=== PATIENT | male | born 1940 | race Caucasian/White ===

== ENCOUNTER → 2016-10-15 | Day surgery (SDC) | payer OTHER ==
[2016-09-17 10:18] VITALS: BMI 43.0
--- NOTE | 2016-09-17 11:04 | PAT Medication Instructions ---
Service Date Sep 17, 2016. Current Home Medication List Acetaminophen Tab (Tylenol), 650 MG PO DAILY PRN for Pain Aspirin (Ecotrin Low Strength), 81 MG PO QAM Atenolol (Tenormin), 50 MG PO QAM Atorvastatin (Lipitor), 40 MG PO QPM Cyanocobalamin (Vitamin B12), 1,000 MCG PO QPM Docusate Sodium (Colace), 1 CAP PO BID Home O2 Therapy (Oxygen), 3 LITERS INH HS Ibuprofen-Diphenhydramine Hcl (Advil Pm), 2 TAB PO HS Insulin Aspart (Novolog), 40 UNITS SC TIDM Insulin Glargine (Lantus), 70 UNITS SC BID Isosorbide Mononitrate Ext Rel (Imdur Ext Rel), 60 MG PO QAM Losartan Potassium (Cozaar), 100 MG PO QAM Metformin HCl (Metformin HCl), 1 TAB PO BID Nitroglycerin (Nitrostat), 1 TAB SL UD Oxycodone HCl (Oxycodone HCl), 5-10 MG PO Q4H PRN for Pain Polyethylene Glycol 3350 (Miralax), 17 GM PO HS Medication Instructions For Your Scheduled Surgery - Check with surgeon/solution strategist for instructions: Aspirin (Ecotrin Low Strength), 81 MG PO QAM - Check with surgeon for instructions: Ibuprofen-Diphenhydramine Hcl (Advil Pm), 2 TAB PO HS - Hold the following medications 48 hours prior to surgery: Metformin HCl (Metformin HCl), 1 TAB PO BID - Hold the following medications the morning of surgery: Losartan Potassium (Cozaar), 100 MG PO QAM Insulin Aspart (Novolog), 40 UNITS SC TIDM Docusate Sodium (Colace), 1 CAP PO BID - Take the following medications the morning of surgery with a sip of water: Nitroglycerin (Nitrostat), 1 TAB SL UD (if needed) Oxycodone HCl (Oxycodone HCl), 5-10 MG PO Q4H PRN for Pain (okay to take up to 4 hours prior to surgery if needed) Isosorbide Mononitrate Ext Rel (Imdur Ext Rel), 60 MG PO QAM Atenolol (Tenormin), 50 MG PO QAM Acetaminophen Tab (Tylenol), 650 MG PO DAILY PRN for Pain (if needed) - Take the following medications as scheduled the night before surgery: Nitroglycerin (Nitrostat), 1 TAB SL UD Oxycodone HCl (Oxycodone HCl), 5-10 MG PO Q4H PRN for Pain (if needed) Polyethylene Glycol 3350 (Miralax), 17 GM PO HS Insulin Glargine (Lantus), 70 UNITS SC BID Insulin Aspart (Novolog), 40 UNITS SC TIDM Home O2 Therapy (Oxygen), 3 LITERS INH HS Docusate Sodium (Colace), 1 CAP PO BID Cyanocobalamin (Vitamin B12), 1,000 MCG PO QPM Atorvastatin (Lipitor), 40 MG PO QPM Acetaminophen Tab (Tylenol), 650 MG PO DAILY PRN for Pain (if needed) - For Insulin Dependent Diabetic patients: Test blood sugar A.M. of surgery. - If blood sugar greater than 150, take half of your regular dose of: Insulin Glargine (Lantus), 35 units - If blood sugar less than 150, do not take any: Insulin Glargine (Lantus ) If you have any questions please call us at [phone] or [phone] or [phone]
[2016-09-17 11:41] LABS: BASO % 0.6 %; BASO ABS # 0.05 K/uL (0-0.2); COMPLETE YES; EOS % 1.9 %; HEMATOCRIT 40.9 % (42-52); IG% 0.7 %; LYMPH % 22.4 %; LYMPH ABS # 1.98 K/uL (1.2-3.4); MEAN CELL VOLUME 91.5 fL (80-100); MEAN CORPUSCULAR HEMOGLOBIN 30.6 pg (25-34); MEAN CORPUSCULAR HGB CONC 33.5 g/dl (32-36); MEAN PLATELET VOLUME 11.7 fL (7.4-10.4); MONO % 14.4 %; PLATELET COUNT 140 K/uL (130-400); RED BLOOD COUNT 4.47 M/uL (4.7-6.1); URINE APPEARANCE CLEAR (CLEAR); URINE BILIRUBIN NEG (NEG); URINE COLOR YELLOW; URINE NITRITE NEG (NEG); URINE SPECIFIC GRAVITY 1.019 (1.000-1.030); UROBILINOGEN NEG (NEG); WHITE BLOOD COUNT 8.82 K/uL (4.8-10.8)
[2016-09-17 11:46] LABS: MANUAL MICROSCOPIC REQUIRED? NO; REVIEW REQ? NO
--- NOTE | 2016-09-17 12:35 | DIAGNOSTIC IMAGING REPORT ---
CHEST PREADMISSION(PA/LAT) CLINICAL HISTORY: 76 years-old Male presenting with preadmission chest x-ray. TECHNIQUE: PA and lateral views of the chest were obtained. COMPARISON: 12/05/2014. FINDINGS: Atherosclerosis of the aortic arch. Cardiomediastinal silhouette otherwise normal. Lungs and pleural spaces clear. Posterior fusion hardware noted in the lower thoracic region with associated degenerative changes. Upper abdomen normal. IMPRESSION: 1. No acute cardiopulmonary disease. Electronically signed by: Morgan Delgado M.D. 09/17/2016 12:34 PM Dictated Date/Time: 09/17/2016 12:33 PM
[2016-09-17 12:40] LABS: BUN/CREATININE RATIO 17.5 (10-20); CREATININE 1.5 mg/dl (0.60-1.40); POTASSIUM 4.5 mmol/L (3.5-5.1)
[~2016-10-15] VITALS: Ht 185.4 cm; Wt 150.2 kg
[~2016-10-15] MED LIST: ACET325T96 PO; ACETAMINOPHEN 325 MG TAB PO PRN; ACETAMINOPHEN 650 MG SUPP PR PRN; ASPI-428 PO; ATEN50TA PO; ATOR-24 PO; ATROPINE SULFATE 0.1 MG/ML 5ML SYR IV PRN; BACITRACIN 50000 UNIT VIAL ONE; BUPIVACAINE/EPINEPHRINE 0.5% MPF 1:200,000 10 ML VIAL ONE; CEFAZOLIN 3000 MG/65 ML D5W IV SCH; CYAN100020 PO; DEXAMETHASONE SOD INJ 4 MG/ML VIAL ONE; DOCU-94 PO; EpHEDrine SULFATE 50MG/5ML SYR ONE; EpHEDrine SULFATE INJ 50 MG/ML AMP IV PRN; FENTANYL CITRATE INJ 50 MCG/1 ML 2 ML VIAL IV PRN; FENTANYL CITRATE INJ 50 MCG/1 ML 2 ML VIAL ONE; GLC500 PO; GLYCOPYRROLATE INJ 0.2 MG/ML VIAL ONE; HYDROmorphone INJ 1 MG/ML SYR IV PRN; HYDROmorphone INJ 2 MG/ML SYR/VIAL IV PRN; HYDROmorphone INJ 2 MG/ML SYR/VIAL ONE; IBUP200C9 PO; INSDGI SC; ISOS60TA25 PO; LABETALOL HCL IV 5 MG/ML 20ML IV ONE; LACTATED RINGER'S 1000ML 1,000 ML IV SCH; LARYING-O-JET KIT (LTA) ONE; LIDOCAINE HCL 2% 2 ML VIAL (20MG/ML) ONE; LOSA1TAB38 PO; MIDAZOLAM HCL 1 MG/ML 2ML VIAL ONE; NEOSTIGMINE METHYLSULFATE 1 MG/ML 10ML VIAL ONE; NTRGSL/4 SL; NVLGI SC; ONDANSETRON INJ 2 MG/ML 2 ML VIAL IV PRN; ONDANSETRON INJ 2 MG/ML 2 ML VIAL ONE; OXGN INH; OXYCODONE HCL IR 5 MG TAB (IMMEDIATE RELEASE) PO PRN; PHENYLEPHRINE 100MCG/ML 5ML SYR ONE; POLY335019 PO; PROMETHAZINE HCL INJ 12.5 MG in SODIUM CHLORIDE 0.9% 50ML 50 ML IV PRN; PROPOFOL IV EMULSION 10 MG/ML 20 ML VIAL IV ONE; ROCURONIUM BROMIDE 10 MG/ML 5 ML VIAL ONE; RXC5 PO; SODIUM CHLORIDE 0.9% PF 50 ML VIAL ONE
[2016-10-15 07:35] VITALS: BP 173/84; PULSE 69; TEMP 36.7; O2SAT 95; Ht 185.4 cm; Wt 150.2 kg
--- NOTE | 2016-10-15 08:26 | History & Physical Bridge Note ---
H&P Re-Evaluation Bridge Note: I have examined the patient, reviewed the History & Physical and in the interval since the performance of the History & Physical I have noted the following changes of clinical significance: No changes noted
--- NOTE | 2016-10-15 08:27 | History and Physical ---
History & Physical Date Oct 15, 2016. Chief Complaint SI joint pain History of Present Illness The patient is a 76 year old male with complaints of chronic SI joint pain Past Medical/Surgical History Medical Problems: (1) CAD (coronary artery disease) (2) Diabetes mellitus (3) Dyslipidemia (4) Epidural abscess (5) HTN (hypertension) (6) ROQUE on CPAP (7) PAD (peripheral artery disease) Surgical Problems: (1) H/O inguinal hernia repair (2) Previous back surgery (3) S/P appendectomy (4) S/P tonsillectomy Additional History Hepatic Disease: No Endocrine Disorder: No Kidney Disease: No Hypertension: Yes Heart Disease: No Bleeding Tendencies: No Infectious Diseases: No Allergies Coded Allergies: Lisinopril (Verified Adverse Reaction, Unknown, COUGH, THROAT IRRITATION, 10/15/16) Home Medications Scheduled Aspirin (Ecotrin Low Strength), 81 MG PO QAM Atenolol (Tenormin), 50 MG PO QAM Atorvastatin (Lipitor), 40 MG PO QPM Cyanocobalamin (Vitamin B12), 1,000 MCG PO QPM Docusate Sodium (Colace), 1 CAP PO BID Home O2 Therapy (Oxygen), 3 LITERS INH HS Ibuprofen-Diphenhydramine Hcl (Advil Pm), 2 TAB PO HS Insulin Aspart (Novolog), 40 UNITS SC TIDM Insulin Glargine (Lantus), 70 UNITS SC BID Isosorbide Mononitrate Ext Rel (Imdur Ext Rel), 60 MG PO QAM Losartan Potassium (Cozaar), 100 MG PO QAM Metformin HCl (Metformin HCl), 1 TAB PO BID Nitroglycerin (Nitrostat), 1 TAB SL UD Polyethylene Glycol 3350 (Miralax), 17 GM PO HS Scheduled PRN Acetaminophen Tab (Tylenol), 650 MG PO DAILY PRN for Pain Oxycodone HCl (Oxycodone HCl), 5-10 MG PO Q4H PRN for Pain Physical Examination Skin: warm/dry, no rash Eyes: normal inspection, EOMI, sclerae normal ENT: normal ENT inspection, pharynx normal Head: normocephalic, atraumatic Neck: supple, no adenopathy, trachea midline Respiratory/Chest: lungs clear, normal breath sounds, no respiratory distress Cardiovascular: regular rate, rhythm, no edema, no murmur Abdomen / GI: normal bowel sounds, non tender Back: normal inspection Extremities: normal inspection, normal range of motion Neurologic/Psych: no motor/sensory deficits, alert, normal reflexes, oriented x 3 Diagnosis Right SI joint pain Plan of Treatment Right SI joint fusion
--- NOTE | 2016-10-15 10:03 | Discharge Instructions ---
Discharge Instructions Date of Service Oct 15, 2016. Admission Reason for Admission: Si Joint Dysfunction Discharge Discharge Diagnosis / Problem: SI joint pain Discharge Goals Goal(s): Improve function Activity Recommendations Activity Limitations: per Instructions/Follow-up section . Instructions / Follow-Up Instructions / Follow-Up Toe-touch weight-bearing right lower extremity with the use of the walker. May shower in 2 days. Follow-up in the office in 2 weeks as scheduled. Maintain incision clean dry and covered for 5 days. Current Hospital Diet Patient's current hospital diet: Discharge Diet Recommended Diet: Regular Diet Procedures Procedures Performed: Right Sacroiliac Joint Fusion Pending Studies Studies pending at discharge: no Medical Emergencies . Who to Call and When: Medical Emergencies: If at any time you feel your situation is an emergency, please call 911 immediately. . Non-Emergent Contact Non-Emergency issues call your: Primary Care Provider . "Provider Documentation" section prepared by Darren Mart. . VTE Core Measure Inpt VTE Proph given/why not?: [place], [facility]
--- NOTE | 2016-10-15 10:35 | DIAGNOSTIC IMAGING REPORT ---
SACRUM CLINICAL HISTORY: RT SACROILIAC JOINT FUSION fusion TECHNIQUE: Image intensifier COMPARISON STUDY: None FINDINGS: Findings consistent with a sacroiliac fusion. 3. Transverse screws are identified traversing the joint. Additional findings of a lumbar laminectomy and fusion. IMPRESSION: Sacroiliac fusion The above report was generated using voice recognition software. It may contain grammatical, syntax or spelling errors. Electronically signed by: Juan A Hartley M.D. 10/15/2016 10:34 AM Dictated Date/Time: 10/15/2016 10:33 AM
--- NOTE | 2016-10-15 11:02 | [facility] Operative Report ---
Operative Report Operative Date Oct 15, 2016. Pre-Operative Diagnosis Right Sacroiliac Joint Pain Post-Operative Diagnosis Right Sacroiliac Joint Pain Procedure(s) Performed Right Sacroiliac Joint Fusion Surgeon Dr. Mart Landscape Account Manager Surgeon(s) Rohan Dockery PA-C Estimated Blood Loss 20 cc Findings None Specimens none per surgeon Description of Procedure Patient is now probably case discussed questions are dressed. After informed consent patient was taken back to the operative suite and after intubation placed in the prone position the Paulie table with chest pads and hip bolsters. The right upper buttock was prepped and draped nostril fashion. The assistance of fluoroscopy in AP lateral planes and identified the right SI joint. Approximately 3 cm incision was placed on the right upper buttock. A guidewire was then placed in the proximal aspect of the right SI joint with fluoroscopic visualization. We then used dilators to expand up to place a drill across the SI joint. We then measured a 45 mm screw. We used combination of [place] bone grafting with bone graft from the drill. Within a 45 mm MON-coated slotted screw. It was placed across the SI joint without difficulty. Excellent fixation. Then using outrigger guide we placed a distal screw with the same technique this screw 40 mm in length. Again MON-coated filled with [place] bone graft in bone. Then placed the final screw 35 mm in length distal to the previously placed screw. Again excellent fixation across the joint. Incision was then copiously irrigated closed with subcutaneous Vicryl and Monocryl for final skin closure. Sterile dressing placed. Patient awakened taken to PACU stable condition. Please note Jarrod Dockery was present throughout the entire procedure involved in patient positioning complex portions of the procedure and final skin closure. I attest to the content of the Intraoperative Record and any orders documented therein. Any exceptions are noted below.
--- NOTE | 2016-10-15 11:10 | Anesthesiology Progress Note ---
Anesthesia Post Op Note Date & Time Oct 15, 2016 at 11:10 Vital Signs Pain Intensity: 3 Vital Signs Past 12 Hours Date Time Temp Pulse Resp B/P (MAP) Pulse Ox O2 Delivery O2 Flow Rate FiO2 10/15/16 11:06 142/71 10/15/16 11:04 79 21 10/15/16 11:04 79 21 92 10/15/16 11:01 156/80 10/15/16 10:59 78 17 92 10/15/16 10:59 78 17 10/15/16 10:58 77 14 92 10/15/16 10:58 78 14 10/15/16 10:57 153/82 10/15/16 10:56 187/80 10/15/16 10:53 76 15 98 10/15/16 10:53 77 15 10/15/16 10:51 177/90 10/15/16 10:48 77 17 97 10/15/16 10:48 77 17 10/15/16 10:47 78 17 10/15/16 10:47 77 17 98 10/15/16 10:46 196/94 10/15/16 10:42 79 16 97 10/15/16 10:42 79 16 10/15/16 10:41 186/90 10/15/16 10:37 80 14 98 10/15/16 10:37 80 14 10/15/16 10:36 182/98 10/15/16 10:32 82 16 95 10/15/16 10:32 83 16 10/15/16 10:31 186/85 10/15/16 10:28 219/99 10/15/16 10:28 201/123 10/15/16 10:27 83 17 10/15/16 10:27 36.0 80 16 186/85 94 Mask 10 10/15/16 10:27 83 17 93 10/15/16 07:35 36.7 69 20 173/84 (113) 95 Room Air Notes Mental Status: alert / awake / arousable, participated in evaluation Pt Amnestic to Procedure: Yes Nausea / Vomiting: adequately controlled Pain: adequately controlled Airway Patency, RR, SpO2: stable & adequate BP & HR: stable & adequate Hydration State: stable & adequate Anesthetic Complications: no major complications apparent Doing well. BP better after 10mg of labetalol. Pt awake without complaints.
[2016-10-15 12:35] VITALS: BP 135/72; PULSE 72; TEMP 36.8; O2SAT 95
== END | disposition home or self-care (01) ==
LOC: C.ACU 06:46
PROVIDERS: ATTEND Orthopaedic Surgery Orthopaedic Surgery of the Spine
DX: M53.3 Sacrococcygeal disorders, not elsewhere classified (principal); I25.10 Atherosclerotic heart disease of native coronary artery without angina pectoris; I10 Essential (primary) hypertension; E78.5 Hyperlipidemia, unspecified; E11.51 Type 2 diabetes mellitus with diabetic peripheral angiopathy without gangrene; G47.33 Obstructive sleep apnea (adult) (pediatric); Z79.82 Long term (current) use of aspirin; Z79.4 Long term (current) use of insulin; Z79.899 Other long term (current) drug therapy; Z99.81 Dependence on supplemental oxygen

== ENCOUNTER 2017-02-22 10:28 | Emergency (ER) | payer OTHER ==
[~2017-02-22] VITALS: Ht 182.9 cm; Wt 150.2 kg
[~2017-02-22 10:28] MED LIST changes: -ACETAMINOPHEN 325 MG TAB PO PRN; -ACETAMINOPHEN 650 MG SUPP PR PRN; -ATROPINE SULFATE 0.1 MG/ML 5ML SYR IV PRN; -BACITRACIN 50000 UNIT VIAL ONE; -BUPIVACAINE/EPINEPHRINE 0.5% MPF 1:200,000 10 ML VIAL ONE; -CEFAZOLIN 3000 MG/65 ML D5W IV SCH; -DEXAMETHASONE SOD INJ 4 MG/ML VIAL ONE; -EpHEDrine SULFATE 50MG/5ML SYR ONE; -EpHEDrine SULFATE INJ 50 MG/ML AMP IV PRN; -FENTANYL CITRATE INJ 50 MCG/1 ML 2 ML VIAL IV PRN; -FENTANYL CITRATE INJ 50 MCG/1 ML 2 ML VIAL ONE; -GLYCOPYRROLATE INJ 0.2 MG/ML VIAL ONE; -HYDROmorphone INJ 1 MG/ML SYR IV PRN; -HYDROmorphone INJ 2 MG/ML SYR/VIAL IV PRN; -HYDROmorphone INJ 2 MG/ML SYR/VIAL ONE; -LABETALOL HCL IV 5 MG/ML 20ML IV ONE; -LACTATED RINGER'S 1000ML 1,000 ML IV SCH; -LARYING-O-JET KIT (LTA) ONE; -LIDOCAINE HCL 2% 2 ML VIAL (20MG/ML) ONE; -MIDAZOLAM HCL 1 MG/ML 2ML VIAL ONE; -NEOSTIGMINE METHYLSULFATE 1 MG/ML 10ML VIAL ONE; -ONDANSETRON INJ 2 MG/ML 2 ML VIAL IV PRN; -ONDANSETRON INJ 2 MG/ML 2 ML VIAL ONE; -OXYCODONE HCL IR 5 MG TAB (IMMEDIATE RELEASE) PO PRN; -PHENYLEPHRINE 100MCG/ML 5ML SYR ONE; -PROMETHAZINE HCL INJ 12.5 MG in SODIUM CHLORIDE 0.9% 50ML 50 ML IV PRN; -PROPOFOL IV EMULSION 10 MG/ML 20 ML VIAL IV ONE; -ROCURONIUM BROMIDE 10 MG/ML 5 ML VIAL ONE; -SODIUM CHLORIDE 0.9% PF 50 ML VIAL ONE
[2017-02-22 10:40] VITALS: TEMP 36.6; Ht 182.9 cm; Wt 150.2 kg
[2017-02-22] MEDS ORDERED: GABA-113 PO (11:33)
[2017-02-22] MEDS ORDERED: HYZ/50125 PO (11:33)
[2017-02-22] MEDS ORDERED: INSDGIPEN SC (11:33)
[2017-02-22] MEDS ORDERED: NVLG SQ (11:33)
--- NOTE | 2017-02-22 11:57 | EMERGENCY ROOM VISIT NOTE ---
ED Visit Note First contact with patient: 11:00 CHIEF COMPLAINT: Wrist injury HISTORY OF PRESENT ILLNESS: This 76-year-old male patient presents to the emergency department, ambulatory, complaining of pain in the right wrist for approximately 1 month. The patient is minimally able to move their wrist, but all movement is extremely tender. The patient states the pain is sharp and constant, describes it as "nerve spikes" and 10/10. No laceration, no weakness. No numbness or tingling. The patient denies any other injury. The patient is able to move their elbow without difficulty. Movement of the fingers does worsen the symptoms and pain in the wrist. The patient has not had a previous fracture to this wrist. The patient has taken occasional Tylenol and oxycodone for the pain without any relief. The patient did see his PCP earlier this month , and was advised to shrimp picker a wrist splint [id number] due to probable carpal tunnel syndrome. The patient states he picked this up, however did not fit him properly was extremely irritating. The patient has been unable to tolerate wearing the splint. He is scheduled to see orthopedics on March 08 and is scheduled for nerve testing on March 26. The patient states the symptoms have significantly worsened, and he does not feel that he can wait that long to be seen. REVIEW OF SYSTEMS: A 6 system review of systems was performed with positives and pertinent negatives in the HPI. ALLERGIES: Lisinopril MEDICATIONS: Please see list PMH: Diabetes SOCIAL HISTORY: The patient lives locally with family. He denies drug, alcohol , tobacco use. PHYSICAL EXAM: Vital Signs: Reviewed Nurse's notes, vital signs stable. GENERAL : This is a 76-year-old obese white male, in no acute distress, but appears to be in pain, well-developed, well-nourished. NEURO: Alert and oriented to person place and time. Normal sensation to light and sharp touch. MUSCULOSKELETAL: There is no deformity of the left wrist. There is tenderness and edema over the anterior aspect of the wrist. There is no snuff box tenderness. Range of motion is limited due to pain and swelling. There is no tenderness of the elbow, hand or fingers. Senior Director [employer]ight strength 2/5. Radial pulse 2+. SKIN: Normal and intact. The hand is warm and well perfused with capillary refill less than 2 seconds. RADIOLOGY: R WRIST W/NAVICULAR MIN 3 VIEWS CLINICAL HISTORY: Right wrist pain and swelling. COMPARISON: None. DISCUSSION: No acute fractures are visualized. There are no erosive or destructive changes. There is soft tissue calcification visualized the lateral view of the volar aspect of the radioscaphoid joint. There is a small linear radiopaque density projected of the metacarpals. This moves significantly on different obliquities and may lie within the skin. IMPRESSION: 1. No acute fractures 2. Nonspecific particular calcifications the volar aspect of the radioscaphoid joint Electronically signed by: Brian Reed M.D. 02/22/2017 12:16 PM Dictated Date/Time: 02/22/2017 12:12 PM EMERGENCY DEPARTMENT COURSE: I examined the patient. An X-ray of the right wrist was reviewed by myself and radiologist and showed nonspecific particular calcifications in the volar aspect of the radioscaphoid joint. A volar Ortho- Glass splint was placed under my direction and the position was satisfactory. Attempted to provide the patient with a more removable splint, however due to the swelling and the size of his hands and wrist, they were extremely uncomfortable and painful for him to wear the splint. He was provided with an Ortho-Glass splint, as this could be molded to his specific hand and wrist, and I advised him that he could remove the splint as needed, but encouraged him to use it especially at nighttime. Neurovascular status rechecked and intact. The patient was discharged home in good condition. The patient was seen and evaluated by Dr. Dupree. I attest that I have personally reviewed the patient's current medication list. Patient was found to have normal blood pressure on screening and does not require follow-up. DIFFERENTIAL DIAGNOSIS: Carpal tunnel syndrome, lyme disease, abscess, cellulitis, fracture, contusion, sprain, strain, malignancy, and others DIAGNOSIS: Carpal tunnel syndrome, right wrist pain Problem List Medical Problems: (1) CAD (coronary artery disease) Permanent Comment: non Q-wave PA in 1992 s/p PTCA of LAD stenosis stress test 04/2014 - negative for ischemia, EF 55-60% Status: Chronic (2) Diabetes mellitus Status: Chronic (3) Dyslipidemia Status: Chronic (4) Epidural abscess Status: Resolved (5) HTN (hypertension) Status: Chronic (6) ROQUE on CPAP Status: Chronic (7) PAD (peripheral artery disease) Permanent Comment: s/p BL iliac artery stenting Status: Chronic Surgical Problems: (1) H/O inguinal hernia repair Status: Resolved (2) Previous back surgery Permanent Comment: multiple Status: Resolved (3) S/P appendectomy Status: Resolved (4) S/P tonsillectomy Status: Resolved Current/Historical Medications Scheduled Aspirin (Ecotrin Low Strength), 81 MG PO QAM Atenolol (Tenormin), 50 MG PO QAM Atorvastatin (Lipitor), 40 MG PO QPM Cyanocobalamin (Vitamin B12), 1,000 MCG PO QPM Docusate Sodium (Colace), 1 CAP PO BID Gabapentin (Neurontin), 1 CAP PO TID Hctz/Losartan (Hyzaar 12.5MG/50MG), 1 TAB PO DAILY Home O2 Therapy (Oxygen), 3 LITERS INH HS Ibuprofen-Diphenhydramine Hcl (Advil Pm), 2 TAB PO HS Insulin Aspart (Novolog), 40 UNITS SQ TID Insulin Glargine (Lantus Solostar), 80 UNITS SC BID Isosorbide Mononitrate Ext Rel (Imdur Ext Rel), 60 MG PO QAM Losartan Potassium (Cozaar), 100 MG PO QAM Metformin HCl (Metformin HCl), 1 TAB PO BID Methylprednisolone (Medrol Dosepak), 0 PO DAILY Nitroglycerin (Nitrostat), 1 TAB SL UD Polyethylene Glycol 3350 (Miralax), 17 GM PO HS Scheduled PRN Acetaminophen Tab (Tylenol), 650 MG PO DAILY PRN for Pain Oxycodone HCl (Oxycodone HCl), 5-10 MG PO Q4H PRN for Pain Miscellaneous Medications Gabapentin (Neurontin), 300 MG PO Allergies Coded Allergies: Lisinopril (Verified Adverse Reaction, Unknown, COUGH, THROAT IRRITATION, 10/15/16) Vital Signs Date Time Temp Pulse Resp B/P (MAP) Pulse Ox O2 Delivery O2 Flow Rate FiO2 02/22/17 13:01 73 16 139/71 99 02/22/17 10:40 36.6 81 18 142/68 93 Room Air Medications Administered Medications (Trade) Dose Ordered Sig/Lynette Route Start Time Stop Time Status Last Admin Dose Admin Ketorolac Tromethamine (Toradol Inj) 60 mg NOW STAT IM 02/22/17 12:11 02/22/17 12:13 DC 12/19/17 12:17 60 MG Departure Information Impression Primary Impression: Wrist pain, right Additional Impression: Carpal tunnel syndrome of right wrist Dispostion Home / Self-Care Condition GOOD Prescriptions Gabapentin (NEURONTIN) 300 Mg Cap 1 CAP PO TID, #90 CAP Prov: Madison Menendez PA-C 02/22/17 Methylprednisolone (MEDROL DOSEPAK) 4 Mg Alexandru 0 PO DAILY, #1 PKT Prov: Madison Menendez PA-C 02/22/17 Referrals Adam Campa M.D. (PCP) Patient Instructions ED Carpal Tunnel, My [facility] Additional Instructions He was seen in the emergency department today for right wrist pain, I do suspect carpal tunnel syndrome. Please wear the wrist brace your provided with especially at night. As discussed, you may feel more comfortable wearing it during the day for the next few days to help decrease movement and inflammation and/or wrist. You have been prescribed a Medrol Dosepak. This is a steroid which will help decrease your inflammation, redness, and itch. Take the medicine as prescribed. Take the ENTIRE 6 day course of the steroids. As discussed, this medication may increase her blood sugar. You should monitor your blood sugar closely. You were given a prescription for gabapentin. Please take this medication as directed for nerve pain. Please consider taking the medication at night to start, as it can make you sleepy. Ibuprofen(Motrin, Advil) may be used for fever or pain. Use 600mg every six hours as needed. Take with food. Avoid using more than 2400mg in a 24 hour period. Do not use 2400mg per day for more than three consecutive days without physician direction. Prolonged inappropriate use can lead to stomach upset or ulcers. Do not take this medication while on steroids like Medrol Dosepak. When you were finished with the steroids, if you continue to experience breakthrough pain, you may begin taking ibuprofen as directed. (AND/OR) Acetaminophen(Tylenol) may be used for fever or pain. Use 1000mg every six hours as needed. Avoid using more than 3000mg in a 24 hour period. Please follow up with orthopedics at your regularly scheduled appointment. Please return to the emergency department for any discoloration, numbness, worsening swelling or redness, fever, chills, or other concerning symptoms. Problem Qualifiers
[2017-02-22] MEDS ORDERED: KETOROLAC TROMETHAMINE 60 MG/2 ML VIAL IM STA (12:11)
--- NOTE | 2017-02-22 12:16 | EMERGENCY ROOM VISIT NOTE ---
ED Visit Note First contact with patient: 11:00 This Patient was discussed with the physician family medicine physician assistant, Madison Menendez PA-C. The pertinent historical and physical exam findings were confirmed. I agree with the studies ordered and with the interpretations of these studies. I agree with the disposition and care plan.
--- NOTE | 2017-02-22 12:17 | DIAGNOSTIC IMAGING REPORT ---
R WRIST W/NAVICULAR MIN 3 VIEWS CLINICAL HISTORY: Right wrist pain and swelling. COMPARISON: None. DISCUSSION: No acute fractures are visualized. There are no erosive or destructive changes. There is soft tissue calcification visualized the lateral view of the volar aspect of the radioscaphoid joint. There is a small linear radiopaque density projected of the metacarpals. This moves significantly on different obliquities and may lie within the skin. IMPRESSION: 1. No acute fractures 2. Nonspecific particular calcifications the volar aspect of the radioscaphoid joint Electronically signed by: Brian Reed M.D. 02/22/2017 12:16 PM Dictated Date/Time: 02/22/2017 12:12 PM
[2017-02-22] MEDS ORDERED: METH4PAK PO (12:46)
[2017-02-22] MEDS ORDERED: NRN/300 PO (12:46)
[2017-02-22 13:01] VITALS: BP 139/71; PULSE 73; O2SAT 99
== END 2017-02-22 12:55 | disposition home or self-care (01) ==
LOC: C.EDB 10:30 → C.EDD 12:55
DX: M25.531 Pain in right wrist (principal); G56.01 Carpal tunnel syndrome, right upper limb; E11.9 Type 2 diabetes mellitus without complications; M25.831 Other specified joint disorders, right wrist; I25.10 Atherosclerotic heart disease of native coronary artery without angina pectoris; I10 Essential (primary) hypertension; I73.9 Peripheral vascular disease, unspecified; Z79.82 Long term (current) use of aspirin; Z79.4 Long term (current) use of insulin; Z79.84 Long term (current) use of oral hypoglycemic drugs

== ENCOUNTER 2017-06-07 04:53 | Day surgery (SDC) | payer OTHER ==
[2017-05-27 09:00] VITALS: Ht 185.4 cm; Wt 150.0 kg
--- NOTE | 2017-06-01 11:04 | DIAGNOSTIC IMAGING REPORT ---
TWO VIEW CHEST CLINICAL HISTORY: Preoperative examination. FINDINGS: PA and lateral chest radiographs are compared to study dated 09/17/2016. Correlation is made with chest CT dated 04/23/2017. The heart is enlarged and there is atherosclerotic calcification of the thoracic aorta. The pulmonary vasculature is noncongested. Mild emphysematous change and chronic interstitial thickening are similar to previous. No airspace consolidation or pleural effusion is identified. There is no pneumothorax. The skeletal structures are osteopenic. Degenerative change is noted throughout the thoracic spine. Fusion hardware is seen at the thoracolumbar junction. A small metallic foreign body is seen in the left shoulder adjacent to the humeral neck. IMPRESSION: 1. Cardiomegaly and emphysema. 2. There is no acute cardiopulmonary abnormality. 3. The left upper lobe groundglass lesion seen by CT on 04/23/2017 is not apparent by x-ray. The CT findings remain highly concerning for neoplasm. Electronically signed by: Earnest Tirado M.D. 06/01/2017 11:03 AM Dictated Date/Time: 06/01/2017 11:00 AM
[2017-06-01 12:26] LABS: HEMATOCRIT 41.1 % (42-52); HEMOGLOBIN 14.1 g/dL (14.0-18.0); MEAN CELL VOLUME 91.9 fL (80-100); MEAN CORPUSCULAR HEMOGLOBIN 31.5 pg (25-34); MEAN CORPUSCULAR HGB CONC 34.3 g/dl (32-36); RED CELL DISTRIBUTION WIDTH CV 12.9 % (11.5-14.5); RED CELL DISTRIBUTION WIDTH SD 43.4 fL (36.4-46.3); WHITE BLOOD COUNT 7.68 K/uL (4.8-10.8)
[2017-06-01 12:51] LABS: CALCIUM 8.9 mg/dl (8.5-10.1); CREATININE 1.38 mg/dl (0.60-1.40); POTASSIUM 4.4 mmol/L (3.5-5.1)
[2017-06-01 12:58] LABS: HEMOGLOBIN A1C 8.9 % (4.5-5.6)
[2017-06-01 13:01] LABS: MEAN PLATELET VOLUME 12.4 fL (7.4-10.4); PLATELET COUNT 110 K/uL (130-400)
[2017-06-01 13:02] LABS: BASO % 0.4 %; BASO ABS # 0.03 K/uL (0-0.2); EOS % 2.1 %; EOS ABS # 0.16 K/uL (0-0.5); IG# 0.08 K/uL (0.00-0.02); LYMPH % 22.3 %; LYMPH ABS # 1.71 K/uL (1.2-3.4); MONO % 14.5 %; MONO ABS # 1.11 K/uL (0.11-0.59); NEUT % 59.7 %; NEUT ABS # 4.59 K/uL (1.4-6.5)
--- NOTE | 2017-06-06 11:13 | History and Physical ---
History & Physical Date Jun 06, 2017. Chief Complaint Left knee pain, medial meniscus tear History of Present Illness The patient is a 76 year old male with acute on chronic left knee pain, positive MRI findings demonstrate complex tear of the posterior horn of the medial meniscus, underlying grade 4 arthritis PFJ and medial compartment. The patient failed conservative treatments including, corticosteroid injection, oral anti-inflammatories and physical therapy. Past Medical/Surgical History Medical Problems: (1) CAD (coronary artery disease) (2) Diabetes mellitus (3) Dyslipidemia (4) Epidural abscess (5) HTN (hypertension) (6) ROQUE on CPAP (7) PAD (peripheral artery disease) Surgical Problems: (1) H/O inguinal hernia repair (2) Previous back surgery (3) S/P appendectomy (4) S/P tonsillectomy Allergies Coded Allergies: Lisinopril (Verified Adverse Reaction, Unknown, COUGH, THROAT IRRITATION, 05/27/17) Home Medications Scheduled Aspirin (Ecotrin Low Strength), 81 MG PO QAM Atenolol (Tenormin), 50 MG PO QAM Atorvastatin (Lipitor), 40 MG PO QPM Cyanocobalamin (Vitamin B12), 1,000 MCG PO QPM Docusate Sodium (Colace), 1 CAP PO BID Furosemide (Lasix), 20 MG PO QAM Home O2 Therapy (Oxygen), 3 LITERS INH HS Ibuprofen-Diphenhydramine Hcl (Advil Pm), 2 TAB PO HS Insulin Aspart (Novolog), 40 UNITS SQ TID Insulin Glargine (Lantus Solostar), 80 UNITS SC BID Isosorbide Mononitrate Ext Rel (Imdur Ext Rel), 60 MG PO QAM Losartan Potassium (Cozaar), 100 MG PO QAM Meloxicam (Mobic), 7.5 MG PO QAM Metformin HCl (Metformin HCl), 500 MG PO BID Nitroglycerin (Nitrostat), 1 TAB SL UD Potassium Chloride (Micro-K Ext Rel), 10 MEQ PO QAM Scheduled PRN Acetaminophen Tab (Tylenol), 650 MG PO DAILY PRN for Pain Oxycodone HCl (Oxycodone HCl), 5-10 MG PO Q4H PRN for Pain Polyethylene Glycol 3350 (Miralax), 17 GM PO HS PRN for Constipation Physical Examination Skin: warm/dry, no rash Eyes: normal inspection, EOMI, sclerae normal ENT: normal ENT inspection, pharynx normal Head: normocephalic, atraumatic Neck: supple, no adenopathy, trachea midline Respiratory/Chest: lungs clear, normal breath sounds, no respiratory distress Cardiovascular: regular rate, rhythm, no edema, no murmur Abdomen / GI: normal bowel sounds, non tender Back: normal inspection Extremities: + pertinent finding (LLE: NVSI +EHL/FHL/TA/GS SILT grossly, CR< 2 seconds, +MJLT, +medial mcmurrays test. 5/5 motor strength ) Diagnosis Left knee medial meniscus tear Plan of Treatment The patient is a 76-year-old male with acute on chronic left knee pain with positive MRI findings for horizontal degenerative tear of the body and posterior horn of the medial meniscus in the left knee as well as grade 4 medial and patellofemoral arthritis. The patient has failed conservative treatments to this point which include corticosteroid injections, oral anti- inflammatories and physical therapy. The patient has a medial meniscal tear of the knee. I discussed with the patient arthroscopic meniscal surgery involving a partial medial meniscectomy. The risks and benefits associated with the surgery were also discussed. The risks which are very low include, bleeding, infection, damage to a nerve or blood vessel, pain after surgery, loss of motion, need for further surgery, medical complications involved with anesthesia and/or the patients other co- morbidities, reflex sympathetic dystrophy, DVT, [place], CVA, loss of limb, and . The benefits of the surgery include improved pain, better quality of life, and improved function of the knee. This surgery will be done as an outpatient procedure. I also explained to the patient in detail that they do have underlying arthritis to the medial compartment an PFJ and a component of their pain may persist secondary to this arthritis. The patient fully understands the risks and benefits of the procedure and wishes to proceed with arthroscopic surgery.
[~2017-06-07] VITALS: Ht 185.4 cm; Wt 150.0 kg
[~2017-06-07 04:53] MED LIST changes: +ACET-1693 PO; -ACET325T96 PO; +FURO-85 PO; +IBUP1CAP30 PO; -IBUP200C9 PO; -INSDGI SC; +INSDGIPEN SC; +MELO7.5T7 PO; +NVLG SQ; -NVLGI SC; +POTA10CA28 PO
[2017-06-07 05:48] VITALS: BP 172/81; PULSE 78; TEMP 36.4; O2SAT 98
[2017-06-07] MEDS ORDERED: CEFAZOLIN 3000MG IV PUSH 22.5 ML IV SCH (06:00)
[2017-06-07] MEDS ORDERED: LACTATED RINGER'S 1000ML 1,000 ML IV SCH (06:00)
[2017-06-07] MEDS ORDERED: BUPIVACAINE 0.5 % 5 MG/1 ML PF 10ML VIAL ONE (06:22)
[2017-06-07] MEDS ORDERED: ROPIVACAINE 0.5% 5 MG/ML 30 ML VIAL ONE (06:22)
[2017-06-07] MEDS ORDERED: BUPIVACAINE/EPINEPHRINE 0.5% MPF 1:200,000 30 ML VIAL ONE (06:45)
[2017-06-07] MEDS ORDERED: FENTANYL CITRATE INJ 50 MCG/1 ML 2 ML VIAL ONE ×2 (06:45→07:14)
[2017-06-07] MEDS ORDERED: PROPOFOL IV EMULSION 10 MG/ML 20 ML VIAL IV ONE (06:45)
[2017-06-07] MEDS ORDERED: SUCCINYLCHOLINE CHLORIDE 20 MG/ML 10 ML VIAL IV ONE (06:45)
[2017-06-07] MEDS ORDERED: LIDOCAINE HCL 2% 2 ML VIAL (20MG/ML) ONE (06:45)
[2017-06-07] MEDS ORDERED: ONDANSETRON INJ 2 MG/ML 2 ML VIAL ONE (06:45)
[2017-06-07] MEDS ORDERED: MIDAZOLAM HCL 1 MG/ML 2ML VIAL ONE (06:45)
[2017-06-07] MEDS ORDERED: DEXAMETHASONE SOD INJ 4 MG/ML VIAL ONE (06:45)
[2017-06-07] MEDS ORDERED: HYDROmorphone INJ 2 MG/ML SYR/VIAL IV PRN (07:00)
[2017-06-07] MEDS ORDERED: EpHEDrine SULFATE INJ 50 MG/ML AMP IV PRN (07:00)
[2017-06-07] MEDS ORDERED: PHENYLEPHRINE 100MCG/ML 5ML SYR IV PRN (07:00)
[2017-06-07] MEDS ORDERED: ONDANSETRON INJ 2 MG/ML 2 ML VIAL IV PRN ×2 (07:00→08:30)
[2017-06-07] MEDS ORDERED: ATROPINE SULFATE 0.1 MG/ML 5ML SYR IV PRN (07:00)
--- NOTE | 2017-06-07 08:04 | [facility] Post Operative Brief Note ---
Immediate Operative Summary Operative Date Jun 07, 2017. Pre-Operative Diagnosis Left knee medial meniscus tear Post-Operative Diagnosis left knee medial and lateral meniscal tear, chondromalacia, hypertrophic synovium Procedure(s) Performed left knee arthroscopy, partial medial menisectomy, partial lateral menisectomy, chondroplasty medial femoral condyle and patalla, partial synovectomy. Surgeon Dr. Jb Wu Meter Shop Supervisor Surgeon(s) none Estimated Blood Loss 5 Findings Consistent with Post-Op Diagnosis Specimens none Drains None Anesthesia Type General Complication(s) none Disposition Disposition: Recovery Room / PACU
[2017-06-07] MEDS ORDERED: SODIUM CHLORIDE 0.9% 1000ML 1,000 ML IV SCH (08:17)
[2017-06-07] MEDS ORDERED: ASPEC325 PO (08:24)
[2017-06-07] MEDS ORDERED: HYDR-3419 PO (08:24)
--- NOTE | 2017-06-07 08:28 | Discharge Instructions ---
Discharge Instructions Date of Service Jun 07, 2017. Visit Reason for Visit: Left Knee Medial Meniscus Tear Discharge Discharge Diagnosis / Problem: Left knee medial and lateral mensical tear, chondromalacia Discharge Goals Goal(s): Decrease discomfort, Improve function, Increase independence Activity Recommendations Activity Limitations: resume your previous activity Shower/Bathe: tomorrow (shower only, no bathing), keep incision dry Driving or Machine Use: when cleared by doctor Weightbearing Status: Left weightbearing (as tolerated) Anesthesia . Post Anesthesia Instructions: If you have had General Anesthesia or IV Sedation: * Do not drive today. * Resume driving when surgeon permits. * Do not make important decisions or sign legal documents today. * Call surgeon for: 1. Temperature elevations greater than 101 degrees F. 2. Uncontrollable pain. 3. Excessive bleeding. 4. Persistent nausea and vomiting. 5. Medication intolerance (nausea, vomiting or rash). * For nausea and vomiting use only clear liquids such as: tea, soda, bouillon until nausea subsides, then gradually increase diet as tolerated. * If you have any concerns or questions, call your surgeon's office. If physician is unavailable and it is an emergency, call 911 or go to the nearest emergency room. . Instructions / Follow-Up Instructions / Follow-Up ACTIVITY RECOMMENDATIONS: * You may walk on the leg with or without crutches as comfort permits. * Bending of the knee should start at once. * Do not shower for 24-48 hours following surgery. SPECIAL CARE INSTRUCTIONS: * You may cleanse the skin adjacent to the small wounds with soap and water at the time of the first dressing change. * The application of an ice bag to the front and sides of the knee will decrease swelling and discomfort for the first 48 hours. * The small incisions may be sore and develop bruising. This bruising does not require any special care. SPECIAL PRECAUTIONS: * If you experience unusual pain unrelieved by prescriptions, temperature elevation (100 degrees F. or above) or progressive swelling or bleeding, you should contact our office at for further evaluation. * You may have been prescribed pain medication. If you experience nausea and/or fine skin rash, discontinue this medication and contact our office at for an alternate medication. DRESSING: * Dressing should be comfortable and absorb any leakage of fluid and/or blood. * The dressing may become moist or bloodstained. * Dressing may be removed 24-48 hours after surgery and bandaids placed over the small surgical incisions. If can be removed sooner if it becomes very soiled or loose. * Bandaids may be used over next several days as needed and can be discontinued when there is not further drainage from the wounds. FOLLOW UP VISIT: If appointment is not already scheduled: Please call [facility] to make a follow-up appointment for your surgery at [phone]. 10-14 days after surgery. Diet Recommendations Recommended Home Diet: resume previous diet Procedures Procedures Performed: Left Knee arthroscopy, partial medial menisectomy, partial lateral menisectomy, chondroplasty medial femoral condyle and patella, partial synovectomy. Pending Studies Studies pending at discharge: no Medical Emergencies . Who to Call and When: Medical Emergencies: If at any time you feel your situation is an emergency, please call 911 immediately. . Non-Emergent Contact Non-Emergency issues call your: Primary Care Provider Call Non-Emergent contact if: you have a fever, temperature is above 100.5, temperature is above 101, temperature is above 101.5, your pain is not controlled, your pain is worsening, your pain is unusual for you, your pain is concerning you, wound has increased drainage, wound has increased redness, wound has increased pain, you have any medication questions . . "Provider Documentation" section prepared by Jb Wu. .
[2017-06-07] MEDS ORDERED: OXYCODONE/ACETAMINOPHEN 5-325 TAB PO PRN ×2 (08:30)
[2017-06-07] MEDS ORDERED: MoRPHine SULFATE 4 MG/ML 1 ML CARP\\VIAL IV PRN (08:30)
--- NOTE | 2017-06-07 08:33 | Anesthesiology Progress Note ---
Anesthesia Post Op Note Date & Time Jun 07, 2017 at 08:32 Vital Signs Pain Intensity: 0 Vital Signs Past 12 Hours Date Time Temp Pulse Resp B/P (MAP) Pulse Ox O2 Delivery O2 Flow Rate FiO2 06/07/17 08:13 36.1 76 21 163/82 94 Oxymask 10 06/07/17 05:48 36.4 78 20 172/81 (111) 98 Room Air CPAP Notes Mental Status: alert / awake / arousable, participated in evaluation Pt Amnestic to Procedure: Yes Nausea / Vomiting: adequately controlled Pain: adequately controlled Airway Patency, RR, SpO2: stable & adequate BP & HR: stable & adequate Hydration State: stable & adequate Anesthetic Complications: no major complications apparent
[2017-06-07 09:05] VITALS: BP 139/66; PULSE 75; TEMP 36.5; O2SAT 91
[2017-06-07 09:35] VITALS: BP 151/66; PULSE 75; TEMP 36.5; O2SAT 91
--- NOTE | 2017-06-11 12:48 | [facility] Operative Report ---
Operative Report Operative Date Jun 07, 2017. Pre-Operative Diagnosis Left knee medial meniscus tear Post-Operative Diagnosis left knee medial and lateral meniscal tear, chondromalacia, hypertrophic synovium Procedure(s) Performed Left Knee arthroscopy, partial medial menisectomy, partial lateral menisectomy, chondroplasty medial femoral condyle and patella, partial synovectomy. Surgeon Dr. Jb Wu Seamer Operator Surgeon(s) none Estimated Blood Loss 5mL Findings see dictated op note Specimens none, Per Surgeon Drains None Anesthesia Type General Complication(s) none Disposition Recovery Room / PACU Indications The patient is a 76-year-old male who was seen for an acute on chronic injury to the left knee. MRI demonstrates large complex tear at the posterior horn of the medial meniscus. The patient failed conservative outpatient therapies which included anti-inflammatory, physical therapy and corticosteroid injection. I have indicated the patient for left knee arthroscopy and the risks and benefits were discussed with the patient which include infection, and bleeding, damage to nerves, vessels, soft tissue, bone, pain after surgery, loss of motion , need for further surgery, medical complications involving anesthesia and/or the patient's other comorbidities, reflex sympathetic dystrophy, DVT, [place], CVA, loss of limb and . The benefits of the surgery include improved pain, better quality of life and improved function of the knee. Patient fully understands the risks and benefits of procedure and wished to proceed with arthroscopic surgery. Informed consent was obtained at this time. Description of Procedure The patient was brought to the operating room and placed in supine position and induced into general endotracheal anesthesia per the anesthesia staff. A well- padded tourniquet was placed on the thigh and the left knee was prepped and draped in the usual standard manner with ChloraPrep. A time out was performed, pre-operative antibiotics given and site jaylon confirmed. I made a standard anterolateral viewing portal made through a stab incision and bluntly entered the suprapatellar pouch. Then under spinal needle localization I established an anteromedial portal. There was grade 3 cartilage of the patella. There was grade 4 cartilage of the trochlea. There was grade 4 cartilage of the medial femoral condyle. There was grade 3 cartilage of the medial tibial plateau. A partial synovectomy of hyptertrophic synovium was performed for improved visualization. There was a complex tear of the posterior horn medial meniscus spanning the posterior meniscus to middle 1/3 body. This was debrided back to a stable base utilizing a combination of the shaver as well as meniscal biter. The ACL and PCL were probed and were normal. There was a dengerative tear of the posterior horn of the lateral meniscus. This was debrided back to a stable base with combination of the shaver as well as mensical biter. Probe was used to assess stability of the meniscus. There was grade 1 cartilage of the lateral femoral condyle. There was grade 3 cartilage of the lateral tibial plateau. A chondroplasty was performed on of the medial femoral condyle and patella, debriding back loose cartilage edges. All of the instrumentation was removed from the knee. The portal sites were closed with 3-0 nylon. 30cc of 0.5% Marcaine was injected into the knee and portal sites. A sterile dressing was applied and the tourniquet was released. All needle and sponge counts were correct at the end of the procedure. The patient was transferred to the PACU in stable condition without apparent complication. I attest to the content of the Intraoperative Record and any orders documented therein. Any exceptions are noted below.
== END 2017-06-07 10:00 | disposition home or self-care (01) ==
LOC: C.ACU 04:53
PROVIDERS: ATTEND Orthopaedic Surgery
DX: S83.232A Complex tear of medial meniscus, current injury, left knee, initial encounter (principal); M23.252 Derangement of posterior horn of lateral meniscus due to old tear or injury, left knee; X58.XXXA Exposure to other specified factors, initial encounter; G47.33 Obstructive sleep apnea (adult) (pediatric); I25.2 Old myocardial infarction; I25.10 Atherosclerotic heart disease of native coronary artery without angina pectoris; I10 Essential (primary) hypertension; E11.9 Type 2 diabetes mellitus without complications; J44.9 Chronic obstructive pulmonary disease, unspecified; I73.9 Peripheral vascular disease, unspecified; Z87.891 Personal history of nicotine dependence; Z79.82 Long term (current) use of aspirin; Z79.899 Other long term (current) drug therapy; Z98.42 Cataract extraction status, left eye; Z98.41 Cataract extraction status, right eye; Z98.890 Other specified postprocedural states; Z90.89 Acquired absence of other organs

== ENCOUNTER → 2017-10-10 | Outpatient (CLI) | payer OTHER ==
[~2017-10-10] MED LIST changes: -ASPI-428 PO; +ASPI81TA28 PO; -IBUP1CAP30 PO; -MELO7.5T7 PO; -RXC5 PO
--- NOTE | 2017-10-10 11:08 | DIAGNOSTIC IMAGING REPORT ---
CHEST 2 VIEWS ROUTINE CLINICAL HISTORY: Pulmonary nodule. Postoperative evaluation. COMPARISON STUDY: Chest radiograph September 24, 2017 to FINDINGS: Elevation of the left hemidiaphragm with left hemithorax volume loss is again noted. There are postoperative findings within the left hemithorax. There may be a small left pleural effusion. There is no consolidation or evidence for pulmonary edema. Thoracolumbar spine fusion hardware is noted. Cardiomediastinal silhouette is unremarkable. IMPRESSION: 1. No pneumothorax. 2. Postoperative findings within the left hemithorax, as described above. 3. Suspected small left pleural effusion. Electronically signed by: Gabriele Rivera M.D. 10/10/2017 11:07 AM Dictated Date/Time: 10/10/2017 11:05 AM
== END | disposition home or self-care (01) ==
LOC: C.RAD 10:07
PROVIDERS: ATTEND Surgery
DX: R91.1 Solitary pulmonary nodule (principal)